=== PATIENT | female | born 1995 | race Caucasian/White ===

== ENCOUNTER 2025-02-14 18:03 | Emergency (ER) | payer OTHER ==
[~2025-02-14] VITALS: Ht 170.2 cm; Wt 96.3 kg
[2025-02-14] MEDS ORDERED: PHEN1TAB73 (18:12)
[2025-02-14] MEDS ORDERED: CLIN-250 (18:12)
[2025-02-14] MEDS ORDERED: LAMO150T3 (18:12)
[2025-02-14] MEDS ORDERED: PRAZ5CAP (18:12)
[2025-02-14] MEDS ORDERED: QUET100T2 (18:12)
[2025-02-14] MEDS ORDERED: PROP60TA14 (18:12)
[2025-02-14] MEDS ORDERED: FLUC100T3 (18:12)
[2025-02-14] MEDS ORDERED: trazodone (18:12)
[2025-02-14] MEDS ORDERED: ONDANSETRON 4MG ORAL DISINTEGRATING TAB PO ONE (19:15)
[2025-02-14 19:22] LABS: KETONE, URINE AUTO RFX TRACE mg/dL (NEGATIVE); LEUKOCYTE ESTERASE UR AUTO RFX NEGATIVE (NEGATIVE); MUCUS, URINE RFX LARGE (NEGATIVE); NITRITE, URINE AUTO RFX NEGATIVE (NEGATIVE); RBC, URINE AUTO RFX TNTC /HPF (0-3); SQUAM EPITHELIAL CELL UR AURFX 1 /HPF (0-6); WBC, URINE AUTO RFX 4 /HPF (0-3)
[2025-02-14] MEDS: ONDANSETRON 4MG ORAL DISINTEGRATING TAB PO ONE (19:47)
[2025-02-14 20:44] LABS: Trichomonas vaginalis (AMP) NOT DETECTED (NEGATIVE)
[2025-02-14 21:08] LABS: GC DNA AMPLIFICATION NEGATIVE (NEGATIVE)
[2025-02-14 21:09] LABS: URINE PREG TEST NEGATIVE (NEGATIVE)
[2025-02-14] MEDS ORDERED: FLUC150T9 PO (21:16)
[2025-02-14] MEDS ORDERED: DOXY100C3 PO (21:16)
[2025-02-14] MEDS ORDERED: METR-265 PO (21:16)
[2025-02-14] MEDS ORDERED: ONDA-282 PO (21:21)
[2025-02-14] MEDS: LIDOCAINE 1% SDV 5 ML VIAL DILUENT ONE (21:38)
[2025-02-14] MEDS: cefTRIAXone 500 MG VIAL IM ONE (21:41)
[2025-02-14] MEDS: DOXYCYCLINE HYCLATE 100 MG TABLET PO ONE (21:41)
[2025-02-14 22:09] VITALS: BP 113/82; TEMP 97.1; O2SAT 99
== END 2025-02-14 22:07 | disposition home or self-care (01) ==
LOC: M ED 18:39
DX: N73.9 Female pelvic inflammatory disease, unspecified (principal); Z79.2 Long term (current) use of antibiotics; Z79.899 Other long term (current) drug therapy
CPT/HCPCS: 81001; 84703; 87210; 87661; 87810; 87850; 96372; 99283; J0696